=== PATIENT | male | born 1955 | race Caucasian/White ===

== ENCOUNTER 2023-10-21 10:15 | Outpatient (REF) | payer MEDICARE, MEDICAID, SELFPAY | END 2023-10-21 10:16 | disposition home or self-care (01) | LOC: HO.HOSX 10:15 | PROVIDERS: Visit Provider Orthopaedic Surgery | DX: M25.561 Pain in right knee (principal) | CPT/HCPCS: 20610; 73562; 99202; J1020 ==

== ENCOUNTER 2023-10-21 10:32 | Outpatient (AMB) | payer MEDICARE, MEDICAID, SELFPAY ==
--- NOTE | 2023-10-21 10:56 | MHC.OFFVIS ---
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 The patient states that he injured his knee approximately 6 months ago while walking on a bike trail. The patient was approached by a large bear. When he turned to walk away he twisted his right knee and had acute onset of pain. Since that time his symptoms have gotten worse in spite of continued non operative treatments. He has done physical therapy exercises which aggravated his pain. He has also tried Tylenol and anti-inflammatory medicines which gave him minimal relief. The patient states that his right knee will give out several times per day. He has not been able to go on his walks on the bike trail because of his pain. 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 Allergies No Known Allergies Allergy (Verified 10/21/23 10:59) Physical Exam Vital Signs: BMI result Body Mass Index 39.5 Const Other: Well-nourished well-developed very friendly male awake alert and oriented x3 in no acute distress Extrem Other: Bilateral lower extremity examination shows good capillary refill, no skin lesions noted, normal sensation light touch Right knee examination shows a minimal effusion, minimal crepitus with range of motion, tenderness along his medial joint line, positive Tiara's test, no instability Office Procedures Joint Injection/Drain Joint Injection/Drain Primary Site: right knee Prep: site was prepped using aseptic technique Injected: 40 mg of, DepoMedrol and 1% plain lidocaine Procedure: The patient tolerated the procedure well Coding 97794 - Large joint Procedure code (CPT) selection complete Results Reviewed Results Reviewed: Standing full weight-bearing x-rays of the patient's right knee show minimal joint space narrowing, no acute bony abnormalities Assessment & Plan Assessment & Plan (1) Right knee pain: Code(s): M25.561 - Pain in right knee Plan Mr. March presents with progressively worsening right knee pain and mechanical symptoms most likely due to a tear of his medial meniscus. I had a lengthy discussion with the patient regarding the treatment options. The risks and benefits of a cortisone injection were discussed at length with the patient. The patient wished to proceed with the injection. He tolerated the injection well. Because of the patient's mechanical symptoms I will also send him for an MRI of his right knee to further evaluate the status of his medial meniscus. I will see him back once the MRI is completed to discuss the findings and treatment options. He will continue with his activity modifications in the meantime. Feel free to call me at any time should questions regarding his orthopedic management arise. Thank you very much for asking me to see this very friendly gentleman. I spent 22 minutes in reviewing the patient's records and imaging studies, seeing the patient and documenting in the medical record. Orders: Orders XR knee RT 3V Today M25.561 - Pain in right knee MR knee RT wo con Today S83.241A - Other tear of medial meniscus, current injury, right knee, initial encounter AMB Joint Injection/Aspiration Today M25.561 - Pain in right knee Coding Level of Care Code New Pt Level 2 (19109) Diagnoses Right knee pain M25.561 CPT Codes Coding - 18016 Large joint: 38289 - Large joint ([id number])
[2023-10-21 10:57] VITALS: BMI 39.5
== END 2023-10-21 11:37 | disposition home or self-care (01) ==
PROVIDERS: PCP Internal Medicine; Visit Provider Orthopaedic Surgery
DX: M25.561 Pain in right knee (principal)
CPT/HCPCS: 20610; 99203

== ENCOUNTER 2023-10-28 09:31 | Outpatient (AMB) | payer MEDICARE, MEDICAID, SELFPAY ==
--- NOTE | 2023-10-28 09:33 | MHC.OFFVIS ---
Intake Vital Signs 10/28/23 09:34 Height 5 ft 8 in Weight 260 lb BMI 39.5 Intake Visit Reasons: ov- Right knee MRI review Intake Note: Teodoro is a 68 year old male who presents with complaints of progressively worsening right knee pain and giving way. The patient states that he injured his knee approximately 6 months ago while walking on a bike trail. The patient was approached by a large bear. When he turned to walk away he twisted his right knee and had acute onset of pain. Since that time his symptoms have gotten worse in spite of continued non operative treatments. He has done physical therapy exercises which aggravated his pain. He has also tried Tylenol and anti-inflammatory medicines which gave him minimal relief. The patient was given a cortisone injection at his last visit which gave him minimal relief. The patient states that his right knee will give out several times per day. He has not been able to go on his walks on the bike trail or ride his bicycle because of his pain. Allergies No Known Allergies Allergy (Verified 10/28/23 09:45) Medication List - Last Reconciled 10/28/23 by Jaime Solorzano MD No Known Home Meds Physical Exam Vital Signs: BMI result Body Mass Index 39.5 Const Other: Well-nourished well-developed very friendly male awake alert and oriented x3 in no acute distress Extrem Other: Bilateral lower extremity examination shows good capillary refill, no skin lesions noted, normal sensation light touch Right knee examination shows a minimal effusion, tenderness along his medial and lateral joint lines, positive Tiara's test, no instability Results Reviewed Results Reviewed: MRI of the patient's right knee shows mild diffuse degenerative changes, tearing of the medial meniscus, possible tearing of his lateral meniscus Assessment & Plan Assessment & Plan (1) Right knee pain: Code(s): M25.561 - Pain in right knee Plan Mr. March presents with progressively worsening right knee pain and mechanical symptoms due to a medial meniscus tear and possible tearing of his lateral meniscus. I had a lengthy discussion with the patient regarding the treatment options. At this point he has failed continued non operative treatments. The risks and benefits of right knee arthroscopic surgery were discussed at length with the patient. The patient wishes to proceed with surgery. He does understand that he may not get 100% relief of his symptoms depending on the severity of his degenerative changes. The patient will contact my office to pick a surgery date. He will follow-up as instructed. Feel free to call me at any time should questions regarding his orthopedic management arise. I spent 22 minutes in reviewing the patient's records and imaging studies, seeing the patient and documenting in the medical record. Coding Level of Care Code Est Pt Level 2 (67892) Diagnoses Right knee pain M25.561
[2023-10-28 09:34] VITALS: BMI 39.5
== END 2023-10-28 10:06 | disposition home or self-care (01) ==
PROVIDERS: PCP Internal Medicine; Visit Provider Orthopaedic Surgery
DX: S83.241A Other tear of medial meniscus, current injury, right knee, initial encounter (principal)
CPT/HCPCS: 99213

== ENCOUNTER → 2023-10-28 09:31 | Outpatient (BNVA) | payer MEDICARE, MEDICAID, SELFPAY | PROVIDERS: PCP Internal Medicine; Visit Provider Orthopaedic Surgery | DX: M25.561 Pain in right knee (principal) | CPT/HCPCS: 99212 ==

== ENCOUNTER 2023-11-21 07:11 | Day surgery (SDC) | payer MEDICARE, MEDICAID, SELFPAY ==
--- NOTE | 2023-11-20 11:43 | HO.ANESPROP2 ---
Documented by User: Iris Rosa NP 11/20/23 11:44 HPI - Anesthesia Eval Consult details Narrative: 68yo M for Right Knee Arthroscopy, partial medial meniscetomy, possible partial lateral meniscetomy Anesthesia Pre-Procedure Meds Is the patient on any of the following meds?: Semaglutide (Ozempic) PMFSH Active Problems Active Problems: All Active Problems (Updated 11/12/23 @ 11:21 by Esther Najera RN) Right knee pain (Acute) Past Medical History Medical History Varicose veins of both lower extremities Non-alcoholic fatty liver disease Morbid obesity HTN (hypertension) Hyperlipemia Gynecomastia Exercise-induced asthma CKD (chronic kidney disease), stage III Allergic rhinitis Surgical History Surgical History Hx of colonoscopy Social History Social History Advance Directives: No Advance Directives Information Provided: Yes Meds Allergies Allergy/AdvReac Type Severity Reaction Status Date / Time No Known Allergies Allergy Verified 10/28/23 09:45 Active Medications: Current Medications Cefazolin Sodium/Dextrose (Ancef) 2 gm in 50 mls @ 100 mls/hr IV PREOP ONE Stop: 11/21/23 05:33 Home Medications Medication Instructions Recorded Confirmed Last Taken Type atorvastatin 40 mg tablet 40 mg PO DAILY 11/20/23 Unknown History chlorthalidone 50 mg tablet 50 mg PO DAILY 11/20/23 Unknown History cholecalciferol (vitamin D3) 25 25 mcg PO DAILY 11/20/23 Unknown History mcg (1,000 unit) tablet losartan 100 mg tablet 100 mg PO DAILY 11/20/23 Unknown History potassium chloride 20 mEq 20 meq PO BID 11/20/23 Unknown History tablet,extended release semaglutide 0.25 mg or 0.5 mg (2 0.5 mg subcut QWEEK 11/20/23 Unknown History mg/1.5 mL) subcutaneous pen injector semaglutide 1 mg/dose (4 mg/3 mL) 1 mg subcut QWEEK 11/20/23 Unknown History subcutaneous pen injector (Ozempic) semaglutide 2 mg/dose (8 mg/3 mL) 2 mg subcut QWEEK 11/20/23 Unknown History subcutaneous pen injector (Ozempic) Assessment and Plan Assessment Anesthesia Assessment: Chart Reviewed Documented by User: Lynne Reyna MD 11/21/23 08:04 HPI - Anesthesia Eval Anesthesia Pre-Procedure Meds If Yes to any meds - educate patient: Pt education - increased risk of aspiration and Pt education - possibility of cancelled proc at provider's discretion PMFSH Past Medical History Medical History Varicose veins of both lower extremities Non-alcoholic fatty liver disease Morbid obesity HTN (hypertension) Hyperlipemia Gynecomastia Exercise-induced asthma CKD (chronic kidney disease), stage III Allergic rhinitis Family History Family history of problems with anesthesia: No Surgical History Surgical History Hx of colonoscopy History of Problems with Anesthesia: No Social History Social History Advance Directives: No Advance Directives Information Provided: Yes Meds Allergies Allergy/AdvReac Type Severity Reaction Status Date / Time No Known Allergies Allergy Verified 10/28/23 09:45 Home Medications Medication Instructions Recorded Confirmed Last Taken Type atorvastatin 40 mg tablet 40 mg PO DAILY 11/20/23 Unknown History chlorthalidone 50 mg tablet 50 mg PO DAILY 11/20/23 Unknown History cholecalciferol (vitamin D3) 25 25 mcg PO DAILY 11/20/23 Unknown History mcg (1,000 unit) tablet losartan 100 mg tablet 100 mg PO DAILY 11/20/23 Unknown History potassium chloride 20 mEq 20 meq PO BID 11/20/23 Unknown History tablet,extended release semaglutide 0.25 mg or 0.5 mg (2 0.5 mg subcut QWEEK 11/20/23 Unknown History mg/1.5 mL) subcutaneous pen injector semaglutide 1 mg/dose (4 mg/3 mL) 1 mg subcut QWEEK 11/20/23 Unknown History subcutaneous pen injector (Ozempic) semaglutide 2 mg/dose (8 mg/3 mL) 2 mg subcut QWEEK 11/20/23 Unknown History subcutaneous pen injector (Ozempic) Exam Airway Mallampati Class: III TM Dist: >3cm Neck ROM: Limited Heart: rrr, rbbb on ekg Lungs: cta, pro air 3 days ago Assessment and Plan Assessment Anesthesia Assessment: Anesthesia Plan Discussed Final Anesthetic Review Family History of Problems with Anesthesia: No History of Problems with Anesthesia: No NPO: Yes ASA Class: III Final Preanesthetic Review: No Changes in Pt Med Stat, Meds/Allgs Chart Reviewed, Consent Obtained/Reviewed and Anes Risks/Benef Reviewed Patient Risk: Intermediate Procedure Risk: Low Anesthetic Plan Anesthetic Plan: GA Disposition: Standard PACU
[2023-11-21] VITALS (15 sets, daily range): BP systolic 132–187; BP diastolic 39–92; PULSE 61–76; RESP 12–23; TEMP 36.4–37.1; O2SAT 94–100; BMI 42.8
--- NOTE | 2023-11-21 07:35 | ECG_ITS ---
Test Reason : CKD, HTN, PREOP Blood Pressure : / mmHG Vent. Rate : 067 BPM Atrial Rate : 067 BPM P-R Int : 160 ms QRS Dur : 100 ms QT Int : 370 ms P-R-T Axes : 042 -29 007 degrees QTc Int : 390 ms Normal sinus rhythm Incomplete right bundle branch block Borderline ECG No previous ECGs available Referred By: Iris Rosa Electronically Signed By:HERI HARRELL MD
[2023-11-21 08:06] LABS: Hematocrit 42.3 % (42.0-52.0); Hemoglobin 14.1 g/dl (14.0-18.0); Mean Corpuscular HGB Conc 33.3 g/dl (31.0-36.0); Mean Corpuscular Hemoglobin 30.9 pg (27.0-33.0); Mean Corpuscular Volume 92.8 fL (80.0-98.0); Mean Platelet Volume 9.4 fL (9.4-12.4); Platelet Count 258 X10*3/uL (160-400); Red Blood Count 4.56 X10*6/uL (4.60-5.80); White Blood Count 10.3 X10*3/uL (4.8-10.8)
[2023-11-21 08:17] LABS: Anion Gap 14 (12-20); Blood Urea Nitrogen 26 mg/dL (9-16); Carbon Dioxide 32 mmol/L (22-29); Chloride 101 mmol/L (96-108); Creatinine Clr Calc Pharmacy 52.3; Estimated Glomerular Filt Rate 39; Glucose Fasting 117 mg/dL (60-99); Sodium 143 mmol/L (135-145)
[2023-11-21] MEDS: Lactated Ringers 1,000 ML 100 ML IVCONT (08:24)
[2023-11-21 08:28] LABS: Glucose, Whole Blood 122 mg/dL (60-115)
[2023-11-21] MEDS: fentaNYL citrate/PF 100 MCG/2 ML VIAL 25 MCG IVPUSH ×4 (11:09→11:33)
--- NOTE | 2023-11-21 11:12 | P.BOP_ITS ---
Brief Operative Note Date of Service: 11/21/23 Pre-op diagnosis: Right knee medial meniscus tear, right knee degenerative joint disease Post-op diagnosis: same Procedure: Right knee diagnostic arthroscopy with right knee arthroscopic partial medial meniscectomy, right knee arthroscopic chondroplasty of the undersurface of the patella as well as the trochlear groove Implants: none Surgeon: Jaime Solorzano MD Anesthesia: GLMA Was an Geothermal Technician used for this Procedure?: No Estimated blood loss (mL): 10 Pathology: none sent Condition: stable Disposition: PACU
--- NOTE | 2023-11-21 11:15 | W.PM.OPN ---
Operative Note Operative Note Date of Service: 11/21/23 Narrative: After the patient was identified as Teodoro March and his right knee was initialed by myself they were brought to the operating room where general anesthesia was induced by the anesthesiologist in routine fashion. The patient was given 3 g of IV Ancef for infection prophylaxis. A formal time-out was completed. The patient's right lower extremity was prepped and draped in sterile fashion. Marcaine with epinephrine was injected into the planned incision sites as well as their right knee joint. A # 11 scalpel blade was used to make an anterolateral portal 1 cm proximal to the joint line and 1 cm lateral to the patellar tendon. Blunt trocar technique was used into the suprapatellar pouch with the knee in extension. Diagnostic arthroscopy showed multiple bands of thickened plica which would be excised at the end of the procedure. There were no loose bodies or abnormalities found in either the medial or lateral gutters. There were diffuse grades 1 and 2 degenerative changes of the undersurface of the patella as well as grades 2 and 3 degenerative changes of the trochlear groove. The patient's knee was flexed to 45 degrees and a valgus force was placed upon it. The medial compartment was entered. An anteromedial portal was made 1 cm proximal to the joint line and 1 cm medial to the patellar tendon. Probing of the medial meniscus showed a radial tear of the posterior horn. A partial medial meniscectomy was performed using the arthroscopic shaver. Following the partial meniscectomy the remainder of the meniscus tissue was stable. There were diffuse grade 1 degenerative changes of the medial femoral condyle as well as diffuse grade 1 degenerative changes of the medial tibial plateau. The patient's knee was then placed into a neutral position. There was no injury to the anterior cruciate ligament. The patient's knee was then placed into the figure of 4 position and the lateral compartment was entered. There were minimal degenerative changes of the lateral femoral condyle and lateral tibial plateau. There was no evidence of lateral meniscus tearing. The patient's knee was once again brought into extension and the suprapatellar pouch was entered. The arthroscopic shaver and the ArthroCare Wand were used to excise the thickened bands of plica. The undersurface of the patella and the trochlear groove articular surface were then made smooth using the arthroscopic shaver. The knee joint was irrigated and then drained. All arthroscopic instruments were removed. The 2 portals were closed with 3-0 nylon interrupted suture. The knee joint was injected with Marcaine. Dry sterile dressing and Kristofer bandages were placed over the patient's knee. The patient was woken and expand the operating room. They were transferred to the recovery room in stable condition.
[2023-11-21] MEDS: oxyCODONE HCl Immed Release 5 MG TABLET PO (11:23)
[2023-11-21] MEDS: cefTRIAXone sodium 1 GM in 0.9 % Sodium Chloride 50 ML IV (12:08)
== END 2023-11-21 12:55 | disposition home or self-care (01) ==
PROVIDERS: Nurse Practitioner; PCP Internal Medicine; Visit Provider Orthopaedic Surgery
PROC: (CPT 29870; principal; 2023-11-21 09:50)
DX: S83.241A Other tear of medial meniscus, current injury, right knee, initial encounter (principal); M17.11 Unilateral primary osteoarthritis, right knee; M67.51 Plica syndrome, right knee; R26.2 Difficulty in walking, not elsewhere classified; X50.1XXA Overexertion from prolonged static or awkward postures, initial encounter; Y93.01 Activity, walking, marching and hiking; Y92.482 Bike path as the place of occurrence of the external cause; Y99.9 Unspecified external cause status; I12.9 Hypertensive chronic kidney disease with stage 1 through stage 4 chronic kidney disease, or unspecified chronic kidney disease; N18.30 Chronic kidney disease, stage 3 unspecified; E78.5 Hyperlipidemia, unspecified; J45.990 Exercise induced bronchospasm; E66.01 Morbid (severe) obesity due to excess calories; Z68.39 Body mass index [BMI] 39.0-39.9, adult; Z79.85 Long-term (current) use of injectable non-insulin antidiabetic drugs; Z79.899 Other long term (current) drug therapy
CPT/HCPCS: 29881; 36415; 80048; 82947; 85027; 93005; J0131; J0171; J0690; J0696; J2250; J2598; J2704; J2795; J3010

== ENCOUNTER → 2023-11-21 07:11 | Outpatient (BNV) | payer MEDICARE, MEDICAID, SELFPAY | PROVIDERS: PCP Internal Medicine; Visit Provider Orthopaedic Surgery | DX: S83.241A Other tear of medial meniscus, current injury, right knee, initial encounter (principal) | CPT/HCPCS: 29881 ==

== ENCOUNTER → 2023-11-21 07:35 | Outpatient (BNV) | payer MEDICARE, MEDICAID, SELFPAY | PROVIDERS: PCP Internal Medicine; Visit Provider Internal Medicine Cardiovascular Disease | DX: I10 Essential (primary) hypertension (principal); I45.19 Other right bundle-branch block; Z01.810 Encounter for preprocedural cardiovascular examination | CPT/HCPCS: 93010 ==

== ENCOUNTER 2023-12-04 11:09 | Outpatient (AMB) | payer MEDICARE, MEDICAID, SELFPAY ==
--- NOTE | 2023-12-04 11:27 | A.OFFVIS_ITS ---
Intake Intake Visit Reasons: PO-Rt Knee 11/21/23 Intake Note: Teodoro 68 yr old male presents today for his P/O visit for his right knee sx from 11/21/[address] Solorzano. States he is only having soreness. Dressing removed in office. Allergies No Known Allergies Allergy (Verified 12/04/23 11:28) HPI PO-Rt Knee 11/21/23 HPI Details 68-year-old male who returns to the [facility] today for post-op right knee , 11/21/[address] Solorzano. He states he has soreness in his knee however he is doing well otherwise. He has no other concerns today. [facility] Medical History Varicose veins of both lower extremities Non-alcoholic fatty liver disease Morbid obesity HTN (hypertension) Hyperlipemia Gynecomastia Exercise-induced asthma CKD (chronic kidney disease), stage III Allergic rhinitis Surgical History Hx of colonoscopy Social History Patient Tobacco Use Status: Never used Tobacco Second Hand Smoke Exposure: No Review of Systems Const All systems reviewed & are unremarkable except as noted in HPI and below Physical Exam Extrem Other: Right knee: Incision clean, dry and intact. No erythema or drainage. ROM 0-100 degrees. Calf supple, nontender. NVI. Results Reviewed Results Reviewed: Brief Operative Note Date of Service: 11/21/23 Pre-op diagnosis: Right knee medial meniscus tear, right knee degenerative joint disease Post-op diagnosis: same Procedure: Right knee diagnostic arthroscopy with right knee arthroscopic partial medial meniscectomy, right knee arthroscopic chondroplasty of the undersurface of the patella as well as the trochlear groove Implants: none Surgeon: Jaime Solorzano MD Assessment & Plan Assessment & Plan (1) S/P medial meniscectomy of right knee: Code(s): Z98.890 - Other specified postprocedural states (2) Osteoarthritis of right knee: Code(s): M17.11 - Unilateral primary osteoarthritis, right knee Qualifiers: Osteoarthritis type: primary Qualified Code(s): M17.11 - Unilateral primary osteoarthritis, right knee (3) Acquired leg length discrepancy: Code(s): M21.70 - Unequal limb length (acquired), unspecified site Plan Sutures removed today, steri strips applied. We discussed options which include physical therapy however he is doing well with exercises on his own. He did inquire about a shoe lift as he has a chronic leg discrepancy and does not have his previous shoe lift, so gave an order for one today. I would like to see him back in [address] Solorzano, sooner if needed. Medications: New [shoe lift] n/a 1 units 0RF leg length discrepancy M21.70 - Unequal limb length (acquired), unspecified site Patient Instructions: Scribed for Maureen Crisostomo PA-C, by Lupillo Hdez veterinary medical officer, on 12/04/2023 at 11:30 AM EST. I, Maureen Crisostomo PA-C, have personally reviewed and agree with the information entered by the scribe. Coding Level of Care Code Global (33740) Diagnoses S/P medial meniscectomy of right knee Z98.890 Primary osteoarthritis of right knee M17.11 Osteoarthritis type: primary Acquired leg length discrepancy M21.70
== END 2023-12-04 11:50 | disposition home or self-care (01) ==
PROVIDERS: PCP Internal Medicine; Visit Provider Physician Assistant
DX: Z98.890 Other specified postprocedural states (principal); M17.11 Unilateral primary osteoarthritis, right knee; M21.70 Unequal limb length (acquired), unspecified site
CPT/HCPCS: 99024

== ENCOUNTER → 2023-12-04 11:09 | Outpatient (BNVA) | payer MEDICARE, MEDICAID, SELFPAY | PROVIDERS: PCP Internal Medicine; Visit Provider Physician Assistant | DX: M17.11 Unilateral primary osteoarthritis, right knee (principal); M21.70 Unequal limb length (acquired), unspecified site; Z98.890 Other specified postprocedural states | CPT/HCPCS: 99212 ==

== ENCOUNTER 2024-01-01 10:23 | Outpatient (AMB) | payer MEDICARE, MEDICAID, SELFPAY ==
--- NOTE | 2024-01-01 10:27 | A.OFFVIS_ITS ---
Intake Intake Visit Reasons: Bilateral knee pain Intake Note: Teodoro is a 68 year old male who presents with complaints of progressively worsening left knee pain and giving way. The patient did undergo right knee arthroscopic surgery on 11/21/2023. He denies any pain in his right knee. He describes his left knee pain as sharp in nature. He did injure his left knee approximately 1 year ago. He twisted his knee and had acute onset of pain along the medial and lateral aspects of his knee. He states that his left knee will give out several times per day. He has tried Tylenol and anti-inflammatory medicines which gave him minimal relief. He has also done physical therapy exercises which aggravated his pain. He has had injections in the past which gave him minimal relief. . Allergies No Known Allergies Allergy (Verified 01/01/24 10:31) Medication List - Last Reconciled 01/01/24 by Jaime Solorzano MD atorvastatin 40 mg PO DAILY chlorthalidone 50 mg PO DAILY cholecalciferol (vitamin D3) 25 mcg PO DAILY losartan 100 mg PO DAILY oxycodone 5 mg PO Q6H PRN potassium chloride ER 20 mEq PO BID [shoe lift n/a] PFSH Medical History Varicose veins of both lower extremities Non-alcoholic fatty liver disease Morbid obesity HTN (hypertension) Hyperlipemia Gynecomastia Exercise-induced asthma CKD (chronic kidney disease), stage III Allergic rhinitis Surgical History Hx of right knee surgery (~11/21/23) Hx of colonoscopy Social History Patient Tobacco Use Status: Never used Tobacco Second Hand Smoke Exposure: No Physical Exam Const Other: Well-nourished well-developed very friendly male awake alert and oriented x3 in no acute distress Extrem Other: Bilateral lower extremity examination shows good capillary refill, no skin lesions noted, normal sensation light touch Right knee examination shows that the surgical incisions are well healed, no erythema, minimal crepitus with range of motion, negative Tiara's test Left knee examination shows a mild effusion, minimal crepitus with range of motion, tenderness along his medial and lateral joint lines, positive Tiara's test Results Reviewed Results Reviewed: Standing full weight-bearing x-rays of the patient's left knee show minimal joint space narrowing, no acute bony abnormalities Assessment & Plan Assessment & Plan (1) Bilateral knee pain: Code(s): M25.561 - Pain in right knee; M25.562 - Pain in left knee (2) Bilateral knee pain: Code(s): M25.561 - Pain in right knee; M25.562 - Pain in left knee Plan Mr. March he is doing very well after undergoing right knee arthroscopic kirkpatrick rgery on 11/21/2023. Does have progressively worsening left knee pain and mechanical symptoms most likely due to a tear of his medial meniscus and possible lateral meniscus tearing. I had a lengthy discussion with the patient regarding the treatment options. At this point he has failed continued non operative treatments. The risks and benefits of left knee arthroscopic surgery were discussed at length with the patient. The patient wishes to proceed with surgery. Surgery will most likely involve left knee diagnostic arthroscopy with partial medial meniscectomy and possible partial lateral meniscectomy. The patient will be scheduled for next available date. He will follow-up as instructed. Feel free to call me at any time should questions regarding his orthopedic management arise. I spent 22 minutes in reviewing the patient's records and imaging studies, seeing the patient and documenting in the medical record. Coding Level of Care Code Est Pt Level 2 (78352) Diagnoses Bilateral knee pain M25.561; M25.562
== END 2024-01-01 10:47 | disposition home or self-care (01) ==
PROVIDERS: PCP Internal Medicine; Visit Provider Orthopaedic Surgery
DX: M25.562 Pain in left knee (principal); M25.561 Pain in right knee
CPT/HCPCS: 99213

== ENCOUNTER → 2024-01-01 10:23 | Outpatient (BNVA) | payer MEDICARE, MEDICAID, SELFPAY | PROVIDERS: PCP Internal Medicine; Visit Provider Orthopaedic Surgery | DX: M25.561 Pain in right knee (principal); M25.562 Pain in left knee; Z79.891 Long term (current) use of opiate analgesic; Z79.899 Other long term (current) drug therapy | CPT/HCPCS: 99212 ==

== ENCOUNTER 2024-02-06 06:19 | Day surgery (SDC) | payer MEDICARE, MEDICAID, SELFPAY ==
[2024-02-04 15:46] VITALS: BMI 42.7
[2024-02-06] VITALS (12 sets, daily range): BP systolic 131–166; BP diastolic 62–73; PULSE 59–67; RESP 18; TEMP 36.6–36.7; O2SAT 93–98; BMI 43.1
--- NOTE | 2024-02-06 08:56 | HO.ANESPROP2 ---
HPI - Anesthesia Eval Consult details Narrative: for knee arthroscopy PMFSH Active Problems Active Problems: All Active Problems Bilateral knee pain (Acute) Osteoarthritis of right knee (Acute) S/P medial meniscectomy of right knee (Acute) Right knee pain (Acute) Past Medical History Medical History Neck pain with history of cervical spinal surgery Varicose veins of both lower extremities Non-alcoholic fatty liver disease Morbid obesity HTN (hypertension) Hyperlipemia Gynecomastia Exercise-induced asthma CKD (chronic kidney disease), stage III Allergic rhinitis Family History Family history of problems with anesthesia: No Surgical History Surgical History Hx of elbow surgery Hx of right knee surgery (~11/21/23) Hx of colonoscopy History of Problems with Anesthesia: No Social History Social History Patient Tobacco Use Status: Never used Tobacco Second Hand Smoke Exposure: No Use of substances other than those prescribed or required for medical reasons: No Are you DNR?: No Advance Directives: No Advance Directives Information Provided: Yes Meds Allergies Allergy/AdvReac Type Severity Reaction Status Date / Time No Known Allergies Allergy Verified 02/06/24 07:48 Home Medications ?Medication ?Instructions ?Recorded ?Confirmed ?Last Taken ?Type atorvastatin 40 mg tablet 40 mg PO DAILY 11/20/23 02/06/24 Unknown History chlorthalidone 50 mg tablet 50 mg PO DAILY 11/20/23 02/06/24 Unknown History cholecalciferol (vitamin D3) 25 25 mcg PO DAILY 11/20/23 02/06/24 Unknown History mcg (1,000 unit) tablet losartan 100 mg tablet 100 mg PO DAILY 11/20/23 02/06/24 Unknown History potassium chloride 20 mEq 20 meq PO BID 11/20/23 02/06/24 Unknown History tablet,extended release Exam Height,Weight and Vital Signs: Height 5 ft 7 in Weight 124.738 kg Airway Mallampati Class: III TM Dist: >3cm Neck ROM: Full Heart: rrrcta Assessment and Plan Assessment Anesthesia Assessment: Anesthesia Plan Discussed Final Anesthetic Review Family History of Problems with Anesthesia: No History of Problems with Anesthesia: No NPO: Yes ASA Class: III Final Preanesthetic Review: No Changes in Pt Med Stat, Meds/Allgs Chart Reviewed, Consent Obtained/Reviewed and Anes Risks/Benef Reviewed Patient Risk: Intermediate Procedure Risk: Low Anesthetic Plan Anesthetic Plan: GA Disposition: Standard PACU
--- NOTE | 2024-02-06 10:07 | PM.OP ---
Brief Operative Note Date of Service: 02/06/24 Pre-op diagnosis: Left knee medial meniscus tear, left knee degenerative joint disease Post-op diagnosis: same Procedure: Left knee arthroscopic partial medial meniscectomy, left knee arthroscopic chondroplasty of the undersurface of the patella as well as the medial femoral condyle Implants: None Surgeon: Jaime Solorzano MD Anesthesia: GLMA Was an Assistant Store Manager Trainee used for this Procedure?: No Estimated blood loss (mL): 10 Pathology: none sent Condition: stable Disposition: PACU
--- NOTE | 2024-02-06 10:08 | W.PM.OPN ---
Operative Note Operative Note Date of Service: 02/06/24 Narrative: After the patient was identified as Teodoro March and his left knee was initialed by myself they were brought to the operating room where general anesthesia was induced by the anesthesiologist in routine fashion. The patient was given 2 g of IV Ancef preoperatively for infection prophylaxis. The patient's left lower extremity was prepped and draped in sterile fashion. A formal time-out was completed. Marcaine was injected into the planned incision sites as well as the patient's left knee joint. A #11 scalpel blade was used to make an anterolateral portal 1 cm proximal to the joint line and 1 cm lateral to the patellar tendon. Blunt trocar technique was used to enter the suprapatellar pouch with the knee in extension. Diagnostic arthroscopy showed multiple bands of thickened plica which would be excised at the end of the procedure. There were no loose bodies or abnormalities found in either the medial or lateral gutters. The articular surface of the patella showed diffuse grades 1 and 2 degenerative changes. The trochlear groove articular surface showed diffuse grade 1 degenerative changes. The patient's knee was flexed to 45 degrees and a valgus force was placed upon it. The medial compartment was entered. An anteromedial portal was made 1 cm proximal to the joint line and 1 cm medial to the patellar tendon. Probing of the medial meniscus showed a radial tear of the posterior horn. A partial medial meniscectomy was performed using the arthroscopic shaver. Following the partial meniscectomy the remainder of the meniscus tissue was stable. There were diffuse grades 1 and 2 degenerative changes of the medial femoral condyle as well as grade 1 degenerative changes of the medial tibial plateau. The articular surface of the medial femoral condyle was then made smooth using the arthroscopic shaver. The articular surface of the medial tibial plateau was already smooth so no chondroplasty was indicated. The patient's knee was placed into a neutral position. There was no injury to the anterior cruciate ligament. The patient's knee was then placed in the figure of 4 position and the lateral compartment was entered. There was no evidence of lateral meniscus tearing. There were minimal degenerative changes of the lateral femoral condyle and lateral tibial plateau. The patient's knee was once again brought into extension and the suprapatellar pouch was entered. The arthroscopic shaver and the ArthroCare Wand were used to excise the thickened bands of plica. The undersurface of the patella was then made smooth using the arthroscopic shaver. The articular surface of the trochlear groove was already smooth so no chondroplasty was indicated. The knee joint was irrigated and then drained. All arthroscopic instruments were removed. The 2 portals were closed with 3-0 nylon interrupted suture. The knee joint was injected with Marcaine. Dry sterile dressing and Kristofer bandages were placed over the patient's knee. The patient was awoken and extubated in the operating room. The patient was transferred to the recovery room in stable condition.
[2024-02-06] MEDS: fentaNYL citrate/PF 100 MCG/2 ML VIAL 25 MCG IVPUSH ×3 (10:09→10:36)
[2024-02-06] MEDS: cefTRIAXone sodium 1 GM in 0.9 % Sodium Chloride 50 ML IV (10:26)
== END 2024-02-06 12:00 | disposition home or self-care (01) ==
PROVIDERS: PCP Internal Medicine; Visit Provider Orthopaedic Surgery
PROC: (CPT 29870; principal; 2024-02-06 09:00)
DX: S83.242A Other tear of medial meniscus, current injury, left knee, initial encounter (principal); M17.12 Unilateral primary osteoarthritis, left knee; M67.52 Plica syndrome, left knee; M23.52 Chronic instability of knee, left knee; X50.1XXA Overexertion from prolonged static or awkward postures, initial encounter; Y93.9 Activity, unspecified; Y92.9 Unspecified place or not applicable; Y99.9 Unspecified external cause status; I12.9 Hypertensive chronic kidney disease with stage 1 through stage 4 chronic kidney disease, or unspecified chronic kidney disease; N18.30 Chronic kidney disease, stage 3 unspecified; K76.0 Fatty (change of) liver, not elsewhere classified; E66.01 Morbid (severe) obesity due to excess calories; E78.5 Hyperlipidemia, unspecified; J45.990 Exercise induced bronchospasm; Z79.899 Other long term (current) drug therapy
CPT/HCPCS: 29881; J0171; J0690; J0696; J2250; J2371; J2704; J2795; J3010

== ENCOUNTER → 2024-02-06 06:19 | Outpatient (BNV) | payer MEDICARE, MEDICAID, SELFPAY | PROVIDERS: PCP Internal Medicine; Visit Provider Orthopaedic Surgery | DX: S83.242A Other tear of medial meniscus, current injury, left knee, initial encounter (principal) | CPT/HCPCS: 29881 ==

== ENCOUNTER 2024-02-19 09:34 | Outpatient (AMB) | payer MEDICARE, MEDICAID, SELFPAY ==
--- NOTE | 2024-02-19 06:48 | A.OFFVIS_ITS ---
Vital Signs 02/19/24 09:36 Height 5 ft 7 in Weight 275 lb BMI 43.1 Intake Visit Reasons: PO-Lt Knee 02/06/24 DR Intake Note: Teodoro is a 68 year old male, hand right dominant, who presents today for post op on left knee . Patient reports he is still experiencing pain, 7 on the 0-10 pain scale. He is not taking anything for the pain. Reports left knee swelling. Shares that he has not been ambulating for far distances due to discomfort. 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 Solorzano. He continues to have mild swelling as well as pain in his knee and rates the pain as 7 on the scale of 0-10. His pain makes him unable to ambulate long distance without discomfort. He has not had physical therapy in the past. He has no other concerns today. [facility] Medical History Neck pain with history of cervical spinal surgery Varicose veins of both lower extremities Non-alcoholic fatty liver disease Morbid obesity HTN (hypertension) Hyperlipemia Gynecomastia Exercise-induced asthma CKD (chronic kidney disease), stage III Allergic rhinitis Surgical History Hx of elbow surgery Hx of right knee surgery (~11/21/23) Hx of colonoscopy Social History (Updated 02/19/24 @ 09:40 by KEVIN Trujillo) Patient Tobacco Use Status: Never used Tobacco Second Hand Smoke Exposure: No Current occupation: right handed Review of Systems Const All systems reviewed & are unremarkable except as noted in HPI and below Physical Exam Vital Signs: BMI result Body Mass Index 43.1 Extrem Other: Left knee: Incision clean, dry and intact. No erythema or drainage. Calf supple, nontender. NVI. Results Reviewed Results Reviewed: Brief Operative Note Date of Service: 02/06/24 Pre-op diagnosis: Left knee medial meniscus tear, left knee degenerative joint disease Post-op diagnosis: same : Left knee arthroscopic partial medial meniscectomy, left knee arthroscopic chondroplasty of the undersurface of the patella as well as the medial femoral condyle Implants: None Surgeon: Jaime Solorzano MD Assessment & Plan Assessment & Plan (1) Bilateral knee pain: Code(s): M25.561 - Pain in right knee; M25.562 - Pain in left knee Category: Medical Plan Sutures removed today, steri strips applied. He will avoid any type of deep bending, twisting, pivoting, or squatting for the next 4 weeks. I did offer him physical therapy which he declined. He will see me back in [address] Solorzano, sooner if needed. Patient Instructions: Scribed for Maureen Crisostomo PA-C, by [employer]dez medical record librarians teacher, on 02/19/2024 at 10:00 AM EST. I, Maureen Crisostomo PA-C, have personally reviewed and agree with the information entered by the scribe. Coding Level of Care Code Global (54931) Diagnoses Bilateral knee pain M25.561; M25.562
[2024-02-19 09:36] VITALS: BMI 43.1
== END 2024-02-19 09:58 | disposition home or self-care (01) ==
PROVIDERS: PCP Internal Medicine; Visit Provider Physician Assistant
DX: M25.561 Pain in right knee (principal); M25.562 Pain in left knee
CPT/HCPCS: 99024

== ENCOUNTER → 2024-02-19 09:34 | Outpatient (BNVA) | payer MEDICARE, MEDICAID, SELFPAY | PROVIDERS: PCP Internal Medicine; Visit Provider Physician Assistant | DX: Z47.89 Encounter for other orthopedic aftercare (principal); M25.561 Pain in right knee; M25.562 Pain in left knee | CPT/HCPCS: 99212 ==

== ENCOUNTER 2024-03-18 09:51 | Outpatient (AMB) | payer MEDICARE, MEDICAID, SELFPAY ==
--- NOTE | 2024-03-18 10:33 | MHC.OFFVIS ---
Vital Signs 03/18/24 10:40 Height 5 ft 7 in Weight 275 lb BMI 43.1 Intake Visit Reasons: PO-Lt Knee 02/06/24 Intake Note: Teodoro a 68 year old male who presents today for a post operative visit s/p left knee on 02/06/24 Patient reports he is doing well, states he does have intermittent soreness. He states he is able to walk 0.5 miles with out a break. Allergies No Known Allergies Allergy (Verified 03/18/24 10:39) HPI HPI PO-Lt Knee 02/06/24 DR: Details: 68-year-old male who returns to the office today for post-op left knee , 02/06/[address] Solorzano. He continues to have soreness in his knee and is doing well overall. He reports he is able to walk 0.5 miles without a break. He has no other concerns today. [facility] Medical History Neck pain with history of cervical spinal surgery Varicose veins of both lower extremities Non-alcoholic fatty liver disease Morbid obesity HTN (hypertension) Hyperlipemia Gynecomastia Exercise-induced asthma CKD (chronic kidney disease), stage III Allergic rhinitis Surgical History Hx of elbow surgery Hx of right knee surgery (~11/21/23) Hx of colonoscopy Social History Patient Tobacco Use Status: Never used Tobacco Second Hand Smoke Exposure: No Current occupation: right handed Review of Systems Const All systems reviewed & are unremarkable except as noted in HPI and below Physical Exam Vital Signs: BMI result Body Mass Index 43.1 Extrem Other: Left knee: Incision well healed. No erythema, no joint effusion. He has full ROM. Calf supple, nontender. NVI. Results Reviewed Results Reviewed: Brief Operative Note Date of Service: 02/06/24 Pre-op diagnosis: Left knee medial meniscus tear, left knee degenerative joint disease Post-op diagnosis: same Procedure: Left knee arthroscopic partial medial meniscectomy, left knee arthroscopic chondroplasty of the undersurface of the patella as well as the medial femoral condyle Implants: None Surgeon: Jaime Solorzano MD Assessment & Plan Assessment & Plan (1) Osteoarthritis of right knee: Code(s): M17.11 - Unilateral primary osteoarthritis, right knee Category: Medical Qualifiers: Osteoarthritis type: primary Qualified Code(s): M17.11 - Unilateral primary osteoarthritis, right knee (2) S/P medial meniscectomy of right knee: Code(s): Z98.890 - Other specified postprocedural states Category: Surgical Plan He will continue with daily activities. I mentioned him working with physical therapy which he would like to continue holding off on, states he goes to the gym and can work on exercises. If symptoms persist or worsens, patient will contact the office, otherwise follow-up as needed. Patient Instructions: Scribed for Maureen Crisostomo PA-C, by [facility] sales, on 03/18/2024 at 10:15 AM EST.? I, Maureen Crisostomo PA-C, have personally reviewed and agree with the information entered by the scribe. Coding Level of Care Code Global (09412) Diagnoses Primary osteoarthritis of right knee M17.11 Osteoarthritis type: primary S/P medial meniscectomy of right knee Z98.890
[2024-03-18 10:40] VITALS: BMI 43.1
== END 2024-03-18 12:01 | disposition home or self-care (01) ==
PROVIDERS: PCP Internal Medicine; Visit Provider Physician Assistant
DX: M17.11 Unilateral primary osteoarthritis, right knee (principal); Z98.890 Other specified postprocedural states
CPT/HCPCS: 99024

== ENCOUNTER → 2024-03-18 09:51 | Outpatient (BNVA) | payer MEDICARE, MEDICAID, SELFPAY | PROVIDERS: PCP Internal Medicine; Visit Provider Physician Assistant | DX: M17.11 Unilateral primary osteoarthritis, right knee (principal); Z98.890 Other specified postprocedural states | CPT/HCPCS: 99212 ==

== ENCOUNTER 2024-03-24 09:05 | Outpatient (REF) | payer MEDICARE, MEDICAID, SELFPAY ==
--- NOTE | ~2024-03-24 | XR_ITS ---
EXAMINATION: XR SHOULDER, BILATERAL CLINICAL INFORMATION: Bilateral shoulder pain. COMPARISON: None available. TECHNIQUE: 2 views each shoulder. FINDINGS: LEFT: A small subchondral cyst is present at the inferior glenoid. A tiny amount of calcification seen at the insertion of the supraspinatus tendon. Mild degenerative changes are seen at the AC joint. RIGHT: The glenohumeral joint is unremarkable. Moderate degenerative changes are seen at the AC joint. No tendinous calcification. XR/XR shoulder LT min 2V IMPRESSION: Degenerative changes in both shoulders as described above.
--- NOTE | ~2024-03-24 | XR_ITS ---
EXAMINATION: XR SHOULDER, BILATERAL CLINICAL INFORMATION: Bilateral shoulder pain. COMPARISON: None available. TECHNIQUE: 2 views each shoulder. FINDINGS: LEFT: A small subchondral cyst is present at the inferior glenoid. A tiny amount of calcification seen at the insertion of the supraspinatus tendon. Mild degenerative changes are seen at the AC joint. RIGHT: The glenohumeral joint is unremarkable. Moderate degenerative changes are seen at the AC joint. No tendinous calcification. XR/XR shoulder RT min 2V IMPRESSION: Degenerative changes in both shoulders as described above.
== END 2024-03-24 09:06 | disposition home or self-care (01) ==
LOC: HO.HOSX 09:05
PROVIDERS: Visit Provider Orthopaedic Surgery
DX: M25.512 Pain in left shoulder (principal); M25.511 Pain in right shoulder; M75.122 Complete rotator cuff tear or rupture of left shoulder, not specified as traumatic; R53.1 Weakness
CPT/HCPCS: 73030; 99212

== ENCOUNTER 2024-03-24 09:49 | Outpatient (AMB) | payer MEDICARE, OTHER, SELFPAY ==
--- NOTE | 2024-03-24 09:58 | MHC.AM.SUB ---
Intake Visit Reasons: New Prob- B/L Shoulder pain Intake Note: Teodoro is a 68 yr old right hand dominant male who presents today for a new Problem visit for bilateral shoulder pains and weakness. The patient states that he injured his shoulder several years ago while lifting weights. The patient states that he was bench pressing heavy weight when he missed the bar at the completion of his set and he felt a pop in his left shoulder. At this point his left shoulder pain and weakness are more bothersome than the symptoms in his right shoulder. He has failed the last 6 weeks of conservative treatment. He has done physical therapy in the past which gave him minimal relief. He has had injections which gave him no relief. He reports weakness when lifting left hand above shoulder height. He has tried Tylenol and anti-inflammatory medicines which gave him minimal. Allergies No Known Allergies Allergy (Verified 03/24/24 09:59) Medication List - Last Reconciled 03/24/24 by Jaime Solorzano MD atorvastatin 40 mg PO DAILY chlorthalidone 50 mg PO DAILY cholecalciferol (vitamin D3) 25 mcg PO DAILY losartan 100 mg PO DAILY oxycodone 5 mg PO Q6H PRN potassium chloride ER 20 mEq PO BID [shoe lift n/a] PFSH Medical History Neck pain with history of cervical spinal surgery Varicose veins of both lower extremities Non-alcoholic fatty liver disease Morbid obesity HTN (hypertension) Hyperlipemia Gynecomastia Exercise-induced asthma CKD (chronic kidney disease), stage III Allergic rhinitis Surgical History Hx of elbow surgery Hx of right knee surgery (~11/21/23) Hx of colonoscopy Social History Patient Tobacco Use Status: Never used Tobacco Second Hand Smoke Exposure: No Current occupation: right handed Physical Exam Const Other: Well-nourished well-developed very friendly male awake alert and oriented x3 in no acute distress Extrem Other: Bilateral upper extremity examination shows good capillary refill, no skin lesions noted, normal sensation light touch Left shoulder examination shows decreased active range of motion when compared to his right shoulder, 4/5 strength with supraspinatus testing, positive impingement signs, no instability, tenderness over his acromioclavicular joint Right shoulder examination shows 4+ out of 5 strength with supraspinatus testing, positive impingement signs, no instability Results Reviewed Results Reviewed: X-rays of the patient's bilateral shoulders taken today show severe acromioclavicular joint narrowing, type 3 acromion, no acute bony abnormalities Assessment & Plan Assessment & Plan (1) Right shoulder pain: Code(s): M25.511 - Pain in right shoulder Category: Medical (2) Left shoulder pain: Code(s): M25.512 - Pain in left shoulder Category: Medical Plan Mr. March presents with bilateral shoulder pains and weakness, left greater than right, due to impingement syndrome, acromioclavicular joint arthritis and possible full-thickness rotator cuff tearing. At this point the patient has failed the last 6 weeks of conservative treatment. Thus, I will send the patient for an MRI of his left shoulder for further evaluation of his rotator cuff tendons. I will see him back once the MRI is completed to discuss the findings and treatment options. Feel free to call me at any time should questions regarding his orthopedic management arise. I spent 22 minutes in reviewing the patient's records and imaging studies, seeing the patient and documenting in the medical record. Orders: Orders XR shoulder LT min 2V Today M25.512 - Pain in left shoulder XR shoulder RT min 2V Today M25.511 - Pain in right shoulder MR shoulder LT wo con Today M75.122 - Complete rotator cuff tear or rupture of left shoulder, not specified as traumatic
== END 2024-03-24 10:16 | disposition home or self-care (01) ==
PROVIDERS: PCP Internal Medicine; Visit Provider Orthopaedic Surgery
DX: M25.511 Pain in right shoulder (principal); M25.512 Pain in left shoulder
CPT/HCPCS: 99213

== ENCOUNTER 2024-04-07 09:57 | Outpatient (AMB) | payer MEDICARE, MEDICAID, SELFPAY ==
--- NOTE | 2024-04-07 09:58 | A.OFFVIS_ITS ---
Intake Visit Reasons: O/V left shoulder MRI review , Impingement of left shoulder Intake Note: Teodoro is a 68 yr old right hand dominant male who presents today with complaints of bilateral shoulder pains, left greater than right. The patient states that he injured his shoulder several years ago while lifting weights. The patient states that he was bench pressing heavy weight when he missed the bar at the completion of his set and he felt a pop in his left shoulder. At this point his left shoulder pain and weakness are more bothersome than the symptoms in his right shoulder. He has failed the last 6 weeks of conservative treatment. He has done physical therapy in the past which gave him minimal rel ief. He has had injections which gave him no relief. He reports mild weakness when lifting left hand above shoulder height. He has tried Tylenol and anti- inflammatory medicines which gave him minimal. Allergies No Known Allergies Allergy (Verified 04/07/24 09:58) Medication List - Last Reconciled 04/07/24 by Jaime Solorzano MD atorvastatin 40 mg PO DAILY chlorthalidone 50 mg PO DAILY cholecalciferol (vitamin D3) 25 mcg PO DAILY losartan 100 mg PO DAILY oxycodone 5 mg PO Q6H PRN potassium chloride ER 20 mEq PO BID [shoe lift n/a] PFSH Medical History Neck pain with history of cervical spinal surgery Varicose veins of both lower extremities Non-alcoholic fatty liver disease Morbid obesity HTN (hypertension) Hyperlipemia Gynecomastia Exercise-induced asthma CKD (chronic kidney disease), stage III Allergic rhinitis Surgical History Hx of elbow surgery Hx of right knee surgery (~11/21/23) Hx of colonoscopy Social History Patient Tobacco Use Status: Never used Tobacco Second Hand Smoke Exposure: No Current occupation: right handed Physical Exam Const Other: Well-nourished well-developed very friendly male awake alert and oriented x3 in no acute distress Extrem Other: Bilateral upper extremity examination shows good capillary refill, no skin lesions noted, normal sensation light touch Left shoulder examination shows slightly decreased range of motion when compared to his right shoulder, 4+ out of 5 strength with supraspinatus testing, positive impingement signs, tenderness over his acromioclavicular joint, no instability Results Reviewed Results Reviewed: MRI of the patient's left shoulder show severe acromioclavicular joint narrowing, a type 2 acromion, signal change within the supraspinatus tendon most likely due to rotator cuff tendinosis Assessment & Plan Assessment & Plan (1) Impingement of left shoulder: Code(s): M25.812 - Other specified joint disorders, left shoulder Plan Mr. March presents with progressively worsening left shoulder pain due to impingement syndrome and acromioclavicular joint arthritis. I had a lengthy discussion with the patient regarding the treatment options. At this point he has failed continued non operative treatments. The risks and benefits of left shoulder surgery were discussed at length with the patient. The patient wishes to proceed with surgery. He will be scheduled for next available date. Surgery will most likely involve left shoulder diagnostic arthroscopy with arthroscopic distal clavicle excision and acromioplasty. The patient will be given a prescription for pain medicine at the time of his surgery. He will follow-up as instructed. Feel free to call me at any time should questions regarding his orthopedic management arise. I spent 20 minutes in reviewing the patient's records and imaging studies, seeing the patient and documenting in the medical record. Coding Level of Care Code Est Pt Level 3 (47960) Diagnoses Impingement of left shoulder M25.812
== END 2024-04-07 10:30 | disposition home or self-care (01) ==
PROVIDERS: PCP Internal Medicine; Visit Provider Orthopaedic Surgery
DX: M25.812 Other specified joint disorders, left shoulder (principal)
CPT/HCPCS: 99213

== ENCOUNTER → 2024-04-07 09:57 | Outpatient (BNVA) | payer MEDICARE, MEDICAID, SELFPAY | PROVIDERS: PCP Internal Medicine; Visit Provider Orthopaedic Surgery | DX: M25.812 Other specified joint disorders, left shoulder (principal) | CPT/HCPCS: 99212 ==